=== PATIENT | male | born 1985 | race Caucasian/White ===

== ENCOUNTER 2022-12-12 12:42 | Outpatient (CLI) | payer OTHER, SELFPAY ==
--- NOTE | 2022-12-12 13:00 | CRLHL7_ITS ---
For Patients: As a result of the Century Cures Act, medical imaging exams and procedure reports are released immediately into your electronic medical record. You may view this report before your referring provider. If you have questions, please contact your health care provider. Indication: Possible renal lesion. Technique: Multiplanar, multisequence MRI of the brain was performed without and with intravenous contrast. Contrast: 15 cc Dotarem. Comparison: None available at this institution. Findings: There is an 8 x 9 x 9 mm lesion along the superior aspect of the pituitary gland, extending into the suprasellar cistern. Lesion abuts and displaces the infundibulum towards the right. Suprasellar extension of lesion, with abutment of the left greater than right aspect of the anterior optic chiasm. Slight uplifting of the left pre chiasmatic optic nerve. Lesion demonstrates intrinsic T1 hyperintensity, without evidence to suggest internal enhancement. The lesion is T2 hypointense. The corpus callosum, clivus and craniocervical junction appear intact. There is no restricted diffusion. No intracranial hemorrhage. The ventricles are proportionate to the cerebral sulci. The 4th ventricle appears midline. The basal cisterns appear patent. No abnormal extra-axial fluid collection identified. Major intracranial vascular flow voids appear grossly intact. Both globes are preserved. Impression: 1. Nonenhancing lesion along the left lateral aspect of the infundibulum. 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 Additional less likely consideration for pituitary adenoma. Dedicated assessment with pituitary protocol MRI and MRA of the head are recommended. 2. Lesion abuts and slightly up lifts the optic chiasm on the left greater than right. Dictated by Faizan Arora MD @ 12/12/2022 2:45:54 PM (Electronically Signed)
== END 2022-12-12 12:43 | disposition home or self-care (01) ==
PROVIDERS: PCP Physician Assistant Medical; Visit Provider Family Medicine
DX: G93.89 Other specified disorders of brain (principal)
CPT/HCPCS: 70553; A9575

== ENCOUNTER 2022-12-23 12:56 | Outpatient (CLI) | payer OTHER, SELFPAY ==
--- NOTE | 2022-12-23 13:00 | CRLHL7_ITS ---
For Patients: As a result of the Century Cures Act, medical imaging exams and procedure reports are released immediately into your electronic medical record. You may view this report before your referring provider. If you have questions, please contact your health care provider. INDICATION: Follow up pituitary lesion. TECHNIQUE: Brain MRI with contrast. Pituitary protocol. The following sequences were obtained: DWI and ADC mapping sequences. Axial FLAIR and T2 weighted sequences. Coronal T2 weighted sequence of the sellar region. Coronal and sagittal thin-section T1 weighted pre-contrast and post-contrast sequences of the sellar region. Coronal T1 weighted postcontrast sequence of the sellar region. T1 weighted sequence of the whole brain. 15 cc of Dotarem gadolinium based intravenous contrast agent was used. COMPARISON: None. FINDINGS: There is an oval lesion within the sellar/suprasellar region which involves the superior pituitary gland and partially encases the infundibulum, which is posteriorly displaced and very slightly deviated to the right. It is mostly T2 hypointense and nonenhancing. It measures 9 millimeters in AP dimension, 9 millimeters anterior dimension, and 12 millimeters in CC dimension. It abuts the optic chiasm without deformity. The cavernous sinuses and Meckel`s caves are normal in appearance. All the major intracranial vascular structures demonstrate normal flow-related signal voids and intraluminal enhancement. Sphenoid sinus demonstrates subsellar pneumatization. No acute infarct or hemorrhage. No pathologic intracranial signal abnormality. No mass effect or herniation. No hydrocephalus or extra-axial collections. Posterior fossa is normal. All the major intracranial vascular structures demonstrate normal flow-related signal. The orbital contents are normal. No calvarial or skull base marrow signal abnormality. No obstructive sinus disease. No extracranial soft tissue findings. IMPRESSION: 1. 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 Slight posterior displacement of the infundibulum by the lesion. Contact of the optic chiasm without deformity. 2. No other significant intracranial abnormalities. Dictated by Robin Blanton MD @ 12/23/2022 4:20:58 PM (Electronically Signed)
--- NOTE | 2022-12-23 14:00 | CRLHL7_ITS ---
For Patients: As a result of the Century Cures Act, medical imaging exams and procedure reports are released immediately into your electronic medical record. You may view this report before your referring provider. If you have questions, please contact your health care provider. INDICATION: Evaluate for aneurysm. TECHNIQUE: 3D [id number] magnetic resonance angiography of the head with 3D MIP reconstructions provided. COMPARISON: None. FINDINGS: No proximal large vessel occlusion. The anterior cerebral arteries are patent. The middle cerebral arteries are patent. The posterior cerebral arteries are patent. The intradural vertebral arteries and basilar artery are patent. The intracranial internal carotid arteries are patent. No aneurysm or high flow vascular malformation. IMPRESSION: IMPRESSION 1. Normal appearance of the intracranial arterial circulation, with no proximal large vessel occlusion, flow limiting stenosis or other vascular abnormality. Dictated by Robin Blanton MD @ 12/23/2022 4:25:51 PM (Electronically Signed)
== END 2022-12-23 12:57 | disposition home or self-care (01) ==
LOC: MRI 12:57
PROVIDERS: PCP Physician Assistant Medical; Visit Provider Family Medicine
DX: E23.7 Disorder of pituitary gland, unspecified (principal)
CPT/HCPCS: 70544; 70553; A9575